=== PATIENT | male | born 1970 | race Caucasian/White ===

== ENCOUNTER 2021-11-07 07:29 | Emergency (ER) | payer OTHER, BC ==
[2021-11-07] MEDS ORDERED: Acetaminophen 500 MG Tab PO ONE (08:11)
--- NOTE | 2021-11-07 08:26 | EDM.PDOC ---
ED HPI GENERAL MEDICAL PROBLEM - General Chief Complaint: General Stated Complaint: CHEST PAIN, NUMBNESS IN BOTH ARMS & LT LEG Time Seen by Provider: 11/07/21 08:05 Source of Information: Reports: Patient, RN. Denies: Old Records History Limitations: Reports: Other (no old records) - History of Present Illness INITIAL COMMENTS - FREE TEXT/NARRATIVE: 51 yo male working locally temporarily presents with a few days of bilateral waxing and waning numbness in both arms that he thinks is coming from his shoulders. Has some grinding in his shoulders. Also has mild upper chest dis comfort. Says his HR is normally in the 70's. No SOB. Has been taking a full ASA a day and 2 days ago took ibuprofen without much change. No fever. Thinks his last BP check was before Covid. Onset: Gradual Duration: Day(s):, Getting Worse Location: Reports: Chest, Upper Extremity, Left, Upper Extremity, Right, Lower Extremity, Left Quality: Reports: Other (numbness of all his extremities except the R leg) Severity: Moderate Improves with: Reports: None Worsens with: Reports: Other (time) Context: Reports: Other (See HPI) Associated Symptoms: Reports: Chest Pain (upper) Treatments CHRONIC DISEASE EPIDEMIOLOGIST: Reports: Aspirin Generalized Pain Score (Numeric/FACES): 8 - Related Data Allergies Allergy/AdvReac Type Severity Reaction Status Date / Time No Known Allergies Allergy Verified 11/07/21 07:56 Home Meds: Home Meds Amphetamine/Dextroamphetamine [Adderall XR] 30 mg PO ACBREAKFAST 11/07/21 [History] Aspirin [Halfprin] 81 mg PO DAILY 11/07/21 [History] Gabapentin [Neurontin] 600 - 900 mg PO BEDTIME 11/07/21 [History] Past Medical History Gastrointestinal History: Reports: None Musculoskeletal History: Reports: Other (See Below) Other Musculoskeletal History: joint aches Psychiatric History: Reports: ADHD - Infectious Disease History Infectious Disease History: Reports: None - Past Surgical History Cardiovascular Surgical History: Reports: None GI Surgical History: Reports: Appendectomy, Hernia Repair/Other Musculoskeletal Surgical History: Reports: None Dermatological Surgical History: Reports: None Social & Family History - Tobacco Use Tobacco Use Status *Q: Current Every Day Tobacco User Years of Tobacco use: 20 Packs/Tins Daily: 0.5 - Caffeine Use Caffeine Use: Reports: Coffee, Energy Drinks, Tea - Recreational Drug Use Recreational Drug Use: No ED ROS GENERAL - Review of Systems Review Of Systems: See Below Constitutional: Reports: No Symptoms HEENT: Reports: No Symptoms Respiratory: Reports: No Symptoms Cardiovascular: Reports: Chest Pain Endocrine: Reports: No Symptoms GI/Abdominal: Reports: No Symptoms : Reports: No Symptoms Musculoskeletal: Reports: Shoulder Pain (bilateral, not new). Denies: Neck Pain Skin: Reports: No Symptoms Neurological: Reports: Numbness (each extremity except the R leg). Denies: Headache, Difficulty Walking Psychiatric: Reports: No Symptoms ED EXAM, GENERAL - Physical Exam Exam: See Below Exam Limited By: No Limitations General Appearance: Alert, WD/WN, No Apparent Distress Eye Exam: Bilateral Eye: Normal Inspection Ears: Normal External Exam, Normal Canal, Hearing Grossly Normal Ear Exam: Bilateral Ear: Auricle Normal, Canal Normal Nose: Normal Inspection, No Blood Throat/Mouth: Normal Inspection, Normal Lips, Normal Oropharynx, Normal Voice, No Airway Compromise Head: Atraumatic, Normocephalic Neck: Normal Inspection, Supple, Non-Tender Respiratory/Chest: No Respiratory Distress, Lungs Clear, Normal Breath Sounds, No Accessory Muscle Use Cardiovascular: Regular Rate, Rhythm, No Edema, Tachycardia GI/Abdominal: Soft, Non-Tender Back Exam: Normal Inspection. No: CVA Tenderness (R), CVA Tenderness (L) Extremities: Normal Inspection, Normal Range of Motion, Non-Tender, No Pedal Edema Neurological: Alert, Oriented, CN II-XII Intact, Normal Cognition, No Motor/Sensory Deficits, Other (+ Tinnel's sign at the L anterior wrist, good pinch strength bilat. ) Psychiatric: Normal Affect, Normal Mood Skin Exam: Warm, Dry, Intact, Normal Color, No Rash Course - Vital Signs Last Recorded V/S: Last Vital Signs Temp 36.8 C 11/07/21 07:55 Pulse 102 H 11/07/21 07:55 Resp 16 11/07/21 07:55 BP 151/102 H 11/07/21 07:55 Pulse Ox 98 11/07/21 07:55 - Orders/Labs/Meds Orders: Active Orders 24 hr Category Date Time Status Cardiac Monitoring [RC] .As Directed Care 11/07/21 08:06 Active Labs: Laboratory Tests 11/07/21 11/07/21 11/07/21 Range/Units 08:20 08:20 08:32 WBC 4.6 (4.5-11.0) K/uL RBC 5.13 (4.30-5.90) M/uL Hgb 15.2 H (12.0-15.0) g/dL Hct 44.0 (40.0-54.0) % MCV 86 (80-98) fL MCH 30 (27-31) pg MCHC 35 (32-36) % Plt Count 191 (150-400) K/uL Sodium 140 (140-148) mmol/L Potassium 3.7 (3.6-5.2) mmol/L Chloride 103 (100-108) mmol/L Carbon Dioxide 27 (21-32) mmol/L Anion Gap 10.4 (5.0-14.0) mmol/L BUN 12 (7-18) mg/dL Creatinine 1.1 (0.8-1.3) mg/dL Est Cr Clr Drug Dosing 96.02 mL/min Estimated GFR (MDRD) > 60 (>60) Glucose 84 (74-106) mg/dL Calcium 8.7 (8.5-10.1) mg/dL Troponin I High Sens 5.8 (<=60.3) pg/mL C-Reactive Protein 1.13 H (0.0-0.3) mg/dL TSH, Ultra Sensitive 0.849 (0.358-3.740) uIU/mL SARS CoV-2 RNA Rapid LUCIO Positive H Meds: Medications Discontinued Medications Generic Name Dose Route Start Last Admin Trade Name Freq PRN Reason Stop Dose Admin Acetaminophen 1,000 mg 11/07/21 08:11 11/07/21 08:18 Acetaminophen 500 Mg Tab PO 11/07/21 08:12 1,000 mg ONETIME ONE Administration Departure - Departure Time of Disposition: 09:15 Disposition: Home, Self-Care 01 Condition: Fair Clinical Impression: COVID-19 - Discharge Information *PRESCRIPTION DRUG MONITORING PROGRAM REVIEWED*: Not Applicable *COPY OF PRESCRIPTION DRUG MONITORING REPORT IN PATIENT [place]: Not Applicable Instructions: Symptoms of COVID-19 - [facility] [place] (01/15/2021), 10 Things You Can Do to Manage Your COVID-19 Symptoms at Home - [facility] [place] (06/08/2021) Referrals: PCP,None [Primary Care Provider] - Forms: ED Department Discharge Additional Instructions: Take the Paxlovid as directed for your Covid illness. In addition take acetaminophen for pain and fever control. Make sure you are getting zinc 50 mg a day and vitamin D 6241-2905 Units daily. Continue a baby aspirin daily. Isolate yourself from others as much as possible to reduce the risk of spread. Wash your hands often and wear a mask when around others to reduce the risk of spread. Recheck in a clinic of your choice if not improving and also to have your BP rechecked after you are well. Sepsis Event Note (ED) - Focused Exam Vital Signs: Vital Signs Temp Pulse Resp BP Pulse Ox 11/07/21 07:55 36.8 C 102 H 16 151/102 H 98 11/07/21 07:50 36.8 C 102 H 16 151/102 H 98 - My Orders Last 24 Hours: My Active Orders 11/07/21 08:06 Cardiac Monitoring [RC] .As Directed - Assessment/Plan Last 24 Hours: My Active Orders 11/07/21 08:06 Cardiac Monitoring [RC] .As Directed
== END 2021-11-07 09:51 | disposition home or self-care (01) ==
LOC: JP.ED 07:29
DX: U07.1 COVID-19 (principal); Z79.82 Long term (current) use of aspirin; Z72.0 Tobacco use
CPT/HCPCS: 36415; 80048; 84443; 84484; 85027; 86140; 87635; 99284; A9270; U0002